=== PATIENT | male | born 1955 | race Caucasian/White ===

== ENCOUNTER 2022-06-22 16:46 | Inpatient (IN) | payer BC ==
[~2022-06-22] VITALS: Ht 182.9 cm; Wt 91.9 kg
[~2022-06-22 16:46] MED LIST: CARV3.1289 PO; FURO-150 PO; LISI5TAB22 PO; NO HOME MEDS; SPIR25TA5 PO
[2022-06-22 17:10] LABS: BASOPHILS # (AUTO) 0.1 X10'3 (0-0.2); BASOPHILS % (AUTO) 0.6 % (0-1); EOSINOPHILS # (AUTO) 0.2 X10'3 (0-0.9); EOSINOPHILS % (AUTO) 1.5 % (0-6); HEMATOCRIT 39.6 % (42.0-52.0); HEMOGLOBIN 12.9 g/dl (14.0-17.9); LYMPHOCYTES # (AUTO) 2.8 X10'3 (1.1-4.8); LYMPHOCYTES % (AUTO) 20.9 % (21-51); MEAN CORPUSCULAR HEMOGLOBIN 31.1 PG (27.0-31.0); MEAN CORPUSCULAR HGB CONC 32.6 g/dL (33.0-36.5); MEAN CORPUSCULAR VOLUME 95.2 FL (78-98); MEAN PLATELET VOLUME 9.6 FL (7.4-10.4); MONOCYTES # (AUTO) 1.7 X10'3 (0-0.9); MONOCYTES % (AUTO) 12.7 % (2-12); NEUTROPHILS # (AUTO) 8.8 X10'3 (1.8-7.7); NEUTROPHILS % (AUTO) 64.3 % (42-75); PLATELET COUNT 162 X10'3 (140-440); RED BLOOD COUNT 4.16 X10'6 (4.70-6.10); RED CELL DISTRIBUTION WIDTH 14.5 % (11.5-14.5); WHITE BLOOD COUNT 13.6 X10'3 (4.5-11.0)
[2022-06-22 17:35] LABS: ALANINE AMINOTRANSFERASE 503 U/L (12-78); ALBUMIN 3.3 G/DL (3.4-5.0); ALBUMIN/GLOBULIN RATIO 0.9 (1.1-1.5); ALKALINE PHOSPHATASE 153 IU/L (46-116); ANION GAP 13 (8-16); ASPARTATE AMINO TRANSFERASE 474 U/L (10-37); BLOOD UREA NITROGEN 21 MG/DL (7-18); BUN/CREATININE RATIO 17.5 (5.4-32.0); CALCIUM 8.8 MG/DL (8.5-10.1); CHLORIDE 99 MMOL/L (99-107); GLUCOSE 125 MG/DL (70-104); POTASSIUM 4.4 MMOL/L (3.5-5.1); SODIUM 132 MMOL/L (135-145); TOTAL CARBON DIOXIDE 19.9 MMOL/L (24-32); TOTAL PROTEIN 6.9 G/DL (6.4-8.2); eGFR 61 ML/MIN
[2022-06-22 17:42] LABS: MAGNESIUM 2.3 MG/DL (1.5-2.4)
[2022-06-22] MEDS ORDERED: CefTRIAXone 2gm/D5W 50ml BAG 50 ML IV ONE (20:00)
[2022-06-22] MEDS ORDERED: normal saline 1000ml 1,000 ML IV ONE (20:25)
[2022-06-22] MEDS ORDERED: iohexol 300mg/ml 100ml inj. ONE (20:40)
[2022-06-22 21:11] LABS: D-DIMER 8.72 MG/L FEU (0-0.50)
--- NOTE | 2022-06-22 21:19 | NUR ---
he is SOB but holding his oxygen down off his face "it stinks like burnt wood."
[2022-06-22] MEDS ORDERED: iohexol 350MG/ML 100ml bottle IV ONE (21:31)
[2022-06-22 21:54] LABS: APTT 29 SECONDS (22-32)
[2022-06-22] MEDS ORDERED: potassium Cl 20 mEq SR tablet PO PRN (22:15)
[2022-06-22] MEDS ORDERED: mag hydrox/Alum hydrox/simeth 30ml oral suspension PO PRN (22:15)
[2022-06-22] MEDS ORDERED: ondansetron/PF 4mg/2ml inj IV PRN (22:15)
[2022-06-22] MEDS ORDERED: ondansetron 4mg rapidly disintigrating tab PO PRN (22:15)
[2022-06-22] MEDS ORDERED: acetaminophen 325mg tablet PO PRN (22:15)
[2022-06-22] MEDS ORDERED: morphine 2 MG/ML inj. syringe IV PRN ×2 (22:15)
[2022-06-22] MEDS ORDERED: magnesium Cl slow-release 64mg tablet PO PRN (22:15)
[2022-06-22] MEDS ORDERED: furosemide 40mg/4ml inj IV ONE (22:15)
[2022-06-22] MEDS ORDERED: magnesium 4gm in 100ml NS 100 ML IV PRN (22:15)
[2022-06-22] MEDS ORDERED: PERFLUTREN PROTEIN-A MICROSPHR (Optison) 0.22 MG/ML 3ML VIAL IV PRN (22:15)
[2022-06-22] MEDS ORDERED: magnesium hydroxide 30ml (MOM) UD suspension PO PRN (22:15)
[2022-06-22] MEDS: normal saline 1000ml 1,000 ML IV SCH (22:15)
[2022-06-22] MEDS ORDERED: acetaminophen 650mg rectal suppository RC PRN (22:15)
[2022-06-22] MEDS ORDERED: potassium Cl 40MEQ/1/2NS 520ml 520 ML IV PRN (22:15)
[2022-06-22] MEDS ORDERED: heparin 10,000 units/1 ML INJ IV PRN (22:15)
[2022-06-22] MEDS ORDERED: heparin 10,000 units/1 ML INJ IV ONE (22:15)
[2022-06-22] MEDS: heparin 25,000 UNIT/250ml bag 250 ML IV PRN (23:40)
[2022-06-23 03:10] VITALS: BP 129/86
[2022-06-23 06:00] VITALS: BP 133/90
--- NOTE | 2022-06-23 06:15 | NUR ---
Patient in room PCU 3016. I have received report from Raymundo ANNE and had the opportunity to ask questions and assume patient care. Bedside report completed. Pt sleeping, Call light in reach. Addendum: 06/23/22 at 0650 by Adina Mcmahon RN Amended: Links added.
[2022-06-23 06:55] LABS: BASOPHILS % (AUTO) 0.3 % (0-1); EOSINOPHILS % (AUTO) 0.1 % (0-6); HEMATOCRIT 39.3 % (42.0-52.0); HEMOGLOBIN 12.6 g/dl (14.0-17.9); LYMPHOCYTES # (AUTO) 1.8 X10'3 (1.1-4.8); LYMPHOCYTES % (AUTO) 13.8 % (21-51); MEAN CORPUSCULAR HEMOGLOBIN 30.5 PG (27.0-31.0); MEAN CORPUSCULAR VOLUME 95.2 FL (78-98); MEAN PLATELET VOLUME 10.7 FL (7.4-10.4); MONOCYTES # (AUTO) 1.8 X10'3 (0-0.9); MONOCYTES % (AUTO) 13.8 % (2-12); NEUTROPHILS # (AUTO) 9.6 X10'3 (1.8-7.7); PLATELET COUNT 145 X10'3 (140-440); RED BLOOD COUNT 4.13 X10'6 (4.70-6.10); RED CELL DISTRIBUTION WIDTH 14.1 % (11.5-14.5); WHITE BLOOD COUNT 13.3 X10'3 (4.5-11.0)
[2022-06-23 06:59] LABS: ALBUMIN 3.3 G/DL (3.4-5.0); ALBUMIN/GLOBULIN RATIO 0.9 (1.1-1.5); ALKALINE PHOSPHATASE 144 IU/L (46-116); ANION GAP 12 (8-16); BILIRUBIN,TOTAL 3.3 MG/DL (0.1-1.0); BLOOD UREA NITROGEN 25 MG/DL (7-18); BUN/CREATININE RATIO 17.5 (5.4-32.0); CALCIUM 8.6 MG/DL (8.5-10.1); CHLORIDE 100 MMOL/L (99-107); CREATININE 1.43 MG/DL (0.60-1.10); GLUCOSE 93 MG/DL (70-104); MAGNESIUM 2.1 MG/DL (1.5-2.4); POTASSIUM 4.8 MMOL/L (3.5-5.1); SODIUM 134 MMOL/L (135-145); TOTAL CARBON DIOXIDE 22.1 MMOL/L (24-32); TOTAL PROTEIN 6.8 G/DL (6.4-8.2); eGFR 49 ML/MIN
[2022-06-23 07:42] LABS: ALANINE AMINOTRANSFERASE 2123 U/L (12-78); ASPARTATE AMINO TRANSFERASE 3140 U/L (10-37)
[2022-06-23] MEDS: K and/or MAG REPLACEMENT MC SCH ×2 (08:00→20:00)
[2022-06-23] MEDS: pantoprazole 40mg Tablet.DR PO SCH (08:01)
[2022-06-23] MEDS: furosemide 40mg/4ml inj IV SCH ×2 (08:01→20:49)
[2022-06-23] MEDS: docusate sod 100mg capsule PO SCH ×2 (08:01→20:00)
[2022-06-23] MEDS: normal saline 1000ml 1,000 ML IV SCH (08:15)
[2022-06-23] MEDS ORDERED: iohexol 350MG/ML 100ml bottle IV ONE (09:26)
[2022-06-23] MEDS ORDERED: FLU VACC QS2022-23(6MOS UP)/PF 60 MCG/0.5 ML SYRINGE IMVAC ONE (10:00)
[2022-06-23] MEDS ORDERED: pneumococcal 23-VAL P-sac vacc 25 mcg/0.5ml vial IMVAC ONE (10:00)
[2022-06-23] MEDS ORDERED: furosemide 20 MG/2 ML vial IV ONE (10:15)
[2022-06-23 11:00] VITALS: BP 123/87
[2022-06-23 15:00] VITALS: BP 125/85
[2022-06-23] MEDS: heparin 25,000 UNIT/250ml bag 250 ML IV PRN (16:02)
[2022-06-23] MEDS ORDERED: ASPI-1071 PO (16:21)
[2022-06-23] MEDS ORDERED: MULT-227 PO (16:21)
[2022-06-23 18:00] VITALS: BP 136/95
--- NOTE | 2022-06-23 18:37 | NUR ---
Problems reprioritized. Patient report given, questions answered & plan of care reviewed with Torri ANNE. Bedside report completed. Pt finished dinner, Call light in reach. Pt continues with SOB. O2 sat WNL. Addendum: 06/23/22 at 1838 by Adina Mcmahon RN Amended: Links added.
[2022-06-23] MEDS: temazepam 15mg capsule PO PRN (20:46)
[2022-06-23] MEDS: aspirin 81mg, enteric-coated 1 TAB TABLET.DR PO SCH (20:48)
[2022-06-23 22:00] VITALS: BP 128/85
[2022-06-24 01:59] LABS: BASOPHILS % (AUTO) 0.3 % (0-1); EOSINOPHILS % (AUTO) 0.2 % (0-6); HEMATOCRIT 39.3 % (42.0-52.0); HEMOGLOBIN 12.8 g/dl (14.0-17.9); LYMPHOCYTES # (AUTO) 2.5 X10'3 (1.1-4.8); LYMPHOCYTES % (AUTO) 15.8 % (21-51); MEAN CORPUSCULAR HEMOGLOBIN 30.9 PG (27.0-31.0); MEAN CORPUSCULAR HGB CONC 32.6 g/dL (33.0-36.5); MEAN CORPUSCULAR VOLUME 94.7 FL (78-98); MEAN PLATELET VOLUME 10.1 FL (7.4-10.4); MONOCYTES # (AUTO) 1.9 X10'3 (0-0.9); MONOCYTES % (AUTO) 11.9 % (2-12); NEUTROPHILS # (AUTO) 11.4 X10'3 (1.8-7.7); NEUTROPHILS % (AUTO) 71.8 % (42-75); PLATELET COUNT 111 X10'3 (140-440); RED BLOOD COUNT 4.15 X10'6 (4.70-6.10); RED CELL DISTRIBUTION WIDTH 14.3 % (11.5-14.5); WHITE BLOOD COUNT 15.8 X10'3 (4.5-11.0)
[2022-06-24 02:00] VITALS: BP 125/82
[2022-06-24 02:17] LABS: ALBUMIN 3.4 G/DL (3.4-5.0); ALBUMIN/GLOBULIN RATIO 1.1 (1.1-1.5); ALKALINE PHOSPHATASE 147 IU/L (46-116); ANION GAP 13 (8-16); BILIRUBIN,TOTAL 4.1 MG/DL (0.1-1.0); BLOOD UREA NITROGEN 36 MG/DL (7-18); BUN/CREATININE RATIO 20.7 (5.4-32.0); CALCIUM 8.4 MG/DL (8.5-10.1); CHLORIDE 96 MMOL/L (99-107); CREATININE 1.74 MG/DL (0.60-1.10); GLUCOSE 83 MG/DL (70-104); PHOSPHORUS 5.2 MG/DL (2.3-4.5); POTASSIUM 4.5 MMOL/L (3.5-5.1); SODIUM 130 MMOL/L (135-145); TOTAL CARBON DIOXIDE 21.5 MMOL/L (24-32); TOTAL PROTEIN 6.6 G/DL (6.4-8.2); eGFR 39 ML/MIN
[2022-06-24 03:09] LABS: ALANINE AMINOTRANSFERASE 3498 U/L (12-78); ASPARTATE AMINO TRANSFERASE 1619 U/L (10-37)
[2022-06-24 06:00] VITALS: BP 95/80
--- NOTE | 2022-06-24 06:03 | NUR ---
Problems reprioritized. Patient report given, questions answered & plan of care reviewed with DAYANA Holden.
--- NOTE | 2022-06-24 06:17 | NUR ---
Patient in room PCU 3016. I have received report from Torri ANNE and had the opportunity to ask questions and assume patient care.Bedside report completed. Pt sleeping. O2 Sat 100% on RA. RR 24. Call light in reach. Addendum: 06/24/22 at 0618 by Adina Mcmahon RN Amended: Links added.
[2022-06-24] MEDS: K and/or MAG REPLACEMENT MC SCH ×2 (08:00→20:00)
[2022-06-24] MEDS: multivitamins, therapeutics tablet PO SCH (08:07)
[2022-06-24] MEDS: pantoprazole 40mg Tablet.DR PO SCH (08:08)
[2022-06-24] MEDS: docusate sod 100mg capsule PO SCH ×2 (08:08→21:12)
[2022-06-24] MEDS: aspirin 81mg, enteric-coated 1 TAB TABLET.DR PO SCH (08:09)
[2022-06-24] MEDS: furosemide 40mg/4ml inj IV SCH ×2 (08:09→21:12)
[2022-06-24 09:21] LABS: CLARITY,URINE SLIGHTLY CLOUDY (Clear); COLOR,URINE YELLOW (Yellow); GLUCOSE, URINE NEGATIVE (Neg); KETONES,URINE NEGATIVE (Neg); LEUKOCYTE ESTERASE ,URINE NEGATIVE (Neg); NITRITES, URINE NEGATIVE (Neg); OCCULT BLOOD,URINE SMALL (Neg); PH,URINE 5.5 (4.8-8.0); PROTEIN,URINE 30 mg/dl (Neg)
[2022-06-24] MEDS: heparin 25,000 UNIT/250ml bag 250 ML IV PRN ×2 (09:26→23:35)
[2022-06-24 09:27] LABS: UA COLLECTION TYPE VOIDED
[2022-06-24 09:32] LABS: BACTERIA,URINE FEW /HPF (Neg); MUCUS STRANDS NONE SEEN /LPF (Neg); SQUAMOUS EPITHELIAL CELL,UR FEW /LPF (FEW); WBC,URINE 0-4 /HPF (0-4)
[2022-06-24 11:28] VITALS: BP 119/90
[2022-06-24 15:00] VITALS: BP 107/85
[2022-06-24 15:14] LABS: HBSAG SCREEN Negative (Negative); HEP A AB, IGM Negative (Negative)
[2022-06-24 15:25] LABS: ABG BASE EXCESS -1.6 mmol/L (-2.0-2.0); ABG HCO3 18.5 mmol/L (22.0-26.0); ABG OXYGEN SATURATION 97.8 % (94-97); ABG PCO2 (T) 20.9 mmHg (35.0-48.0); ABG PO2 (T) 98.8 mmHg (75.0-100.0); ALLEN'S TEST POSITIVE; FCOHb 0.1 % (0.0-3.9); FMetHb 0.2 % (0.0-1.5); FO2Hb 97.5 % (94-97); TOTAL HEMOGLOBIN 13.2 G/dl (14.0-17.9)
--- NOTE | 2022-06-24 15:45 | NUR ---
CRITICAL ABG RESULTS REPORTED TO . NO RESPIRATORY ORDERS GIVEN AT THIS TIME, DAYANA GARCIA AWARE OF ABG RESULTS.
--- NOTE | 2022-06-24 16:22 | NUR ---
DR Dunn informed of Pt ABG results. No new orders. She will eval all the information available. Pt remains in PCU. PT RR 25, O2 sat 97% on 2L. HR 107, BP 107/85. Will continue to monitor and await orders.
[2022-06-24 18:00] VITALS: BP 118/72
--- NOTE | 2022-06-24 18:23 | NUR ---
Problems reprioritized. Patient report given, questions answered & plan of care reviewed with Eda ANNE. Bedside report completed. Pt sitting up in bed. RR 24. O2 sat 26% on 2L. Call light in reach. Addendum: 06/24/22 at 1825 by Adina Mcmahon RN Amended: Links added.
--- NOTE | 2022-06-24 18:38 | NUR ---
Patient in room PCU 3016. I have received report from Adina ANNE and had the opportunity to ask questions and assume patient care.
[2022-06-24] MEDS ORDERED: ipratropium/albuterol 3ml nebule NEB PRN (20:30)
[2022-06-24] MEDS: temazepam 15mg capsule PO PRN (21:12)
[2022-06-24 22:00] VITALS: BP 122/81
[2022-06-24] MEDS: ipratropium/albuterol 3ml nebule NEB SCH (23:00)
[2022-06-25] VITALS (30 sets, daily range): BP systolic 73–124; BP diastolic 42–98
[2022-06-25] MEDS: ipratropium/albuterol 3ml nebule NEB SCH ×2 (03:00→07:00)
[2022-06-25 03:53] LABS: APTT 76 SECONDS (22-32)
--- NOTE | 2022-06-25 06:02 | NUR ---
11 BEAT RUN OF MD SYDNEY NOTIFIED, NO NEW ORDERS ELAINE ANNE
--- NOTE | 2022-06-25 06:35 | NUR ---
Patient in room PCU 3016. I have received report from Eda ANNE and had the opportunity to ask questions and assume patient care.Bedside report completed. Pt sleeping. Laying flat. No respritory distress. RR 20. RA O2 sat 95%. Addendum: 06/25/22 at 0650 by Adina Mcmahon RN Amended: Links added.
[2022-06-25 06:46] LABS: BASOPHILS # (AUTO) 0.1 X10'3 (0-0.2); BASOPHILS % (AUTO) 0.6 % (0-1); EOSINOPHILS # (AUTO) 0.3 X10'3 (0-0.9); EOSINOPHILS % (AUTO) 2.1 % (0-6); HEMOGLOBIN 11.7 g/dl (14.0-17.9); LYMPHOCYTES # (AUTO) 1.9 X10'3 (1.1-4.8); LYMPHOCYTES % (AUTO) 15.7 % (21-51); MEAN CORPUSCULAR HEMOGLOBIN 30.6 PG (27.0-31.0); MEAN CORPUSCULAR HGB CONC 32.5 g/dL (33.0-36.5); MEAN PLATELET VOLUME 10.7 FL (7.4-10.4); MONOCYTES # (AUTO) 1.3 X10'3 (0-0.9); MONOCYTES % (AUTO) 11.2 % (2-12); NEUTROPHILS # (AUTO) 8.5 X10'3 (1.8-7.7); NEUTROPHILS % (AUTO) 70.4 % (42-75); PLATELET COUNT 107 X10'3 (140-440); RED BLOOD COUNT 3.83 X10'6 (4.70-6.10); RED CELL DISTRIBUTION WIDTH 14.2 % (11.5-14.5); WHITE BLOOD COUNT 12.1 X10'3 (4.5-11.0)
--- NOTE | 2022-06-25 07:10 | NUR ---
Problems reprioritized. Patient report given, questions answered & plan of care reviewed with RADHA ANNE.
[2022-06-25 07:15] LABS: ALKALINE PHOSPHATASE 144 IU/L (46-116); ANION GAP 10 (8-16); BILIRUBIN,TOTAL 4.3 MG/DL (0.1-1.0); BLOOD UREA NITROGEN 33 MG/DL (7-18); BUN/CREATININE RATIO 25.4 (5.4-32.0); CALCIUM 7.6 MG/DL (8.5-10.1); CHLORIDE 97 MMOL/L (99-107); GLUCOSE 105 MG/DL (70-104); MAGNESIUM 2.2 MG/DL (1.5-2.4); PHOSPHORUS 2.7 MG/DL (2.3-4.5); POTASSIUM 3.2 MMOL/L (3.5-5.1); SODIUM 131 MMOL/L (135-145); TOTAL CARBON DIOXIDE 23.8 MMOL/L (24-32); TOTAL PROTEIN 5.9 G/DL (6.4-8.2); eGFR 55 ML/MIN
[2022-06-25 07:19] LABS: ASPARTATE AMINO TRANSFERASE 1953 U/L (10-37)
[2022-06-25 07:20] LABS: ALANINE AMINOTRANSFERASE 2589 U/L (12-78)
[2022-06-25] MEDS: K and/or MAG REPLACEMENT MC SCH ×2 (08:00→20:26)
[2022-06-25] MEDS: docusate sod 100mg capsule PO SCH (08:35)
[2022-06-25] MEDS: aspirin 81mg, enteric-coated 1 TAB TABLET.DR PO SCH (08:36)
[2022-06-25] MEDS: pantoprazole 40mg Tablet.DR PO SCH (08:37)
[2022-06-25] MEDS: multivitamins, therapeutics tablet PO SCH (08:37)
[2022-06-25] MEDS: furosemide 40mg/4ml inj IV SCH ×2 (08:37→20:00)
[2022-06-25] MEDS: carVEDilol 3.125mg tablet PO SCH ×2 (10:16→20:00)
[2022-06-25] MEDS: levoFLOXACIN-Levaquin 500mg/D5 100 ML IV SCH (10:16)
[2022-06-25] MEDS: lisinopril 2.5mg tablet PO SCH (10:16)
[2022-06-25] MEDS ORDERED: furosemide 40mg/4ml inj IV ONE (12:10)
--- NOTE | 2022-06-25 12:15 | NUR ---
DR Ponce and Dr Fish at bedside. New orders written. Pt started on Dobutamine Gtt. Labs ordered and drawn. Lasix iv and Kdur po given.
[2022-06-25] MEDS: DOBUTamine-DoBUTrex 500mg/D5W 250 ML IV SCH (12:27)
[2022-06-25] MEDS: potassium Cl 20 mEq SR tablet PO PRN ×2 (12:27→18:51)
[2022-06-25] MEDS ORDERED: potassium Cl 20 mEq SR tablet PO ONE (12:35)
--- NOTE | 2022-06-25 13:53 | NUR ---
PAGER ID: [phone] MESSAGE: [id number] [facility] 3.0, Pro Ca+ 0.64 Adina CENTENO
--- NOTE | 2022-06-25 16:22 | NUR ---
PT updated to POC.
[2022-06-25] MEDS ORDERED: magnesium Cl slow-release 64mg tablet PO PRN (23:25)
[2022-06-25] MEDS ORDERED: magnesium 4gm in 100ml NS 100 ML IV PRN (23:25)
[2022-06-25] MEDS ORDERED: potassium Cl 20 mEq SR tablet PO PRN (23:25)
[2022-06-25] MEDS ORDERED: potassium Cl 40MEQ/1/2NS 520ml 520 ML IV PRN (23:25)
[2022-06-25] MEDS: temazepam 15mg capsule PO PRN (23:44)
[2022-06-26] VITALS (14 sets, daily range): BP systolic 84–156; BP diastolic 55–85
[2022-06-26] MEDS: DOBUTamine-DoBUTrex 500mg/D5W 250 ML IV SCH ×2 (03:18→15:56)
--- NOTE | 2022-06-26 06:27 | NUR ---
Patient in room U 3012V. I have received report from Raymundo ANNE and had the opportunity to ask questions and assume patient care. Pt is in bed lating on L side of body. Pt is resting comfortably. Pt on RA. No s/s of distress. No s/s of pain at this time. BLL, call light within reach, frequently used items in reach, frequnt rounding, morgue keeper socks on. Will continue to monitor.
--- NOTE | 2022-06-26 06:29 | NUR ---
Recieved report from Abdirizak ANNE, not Raymundo ANNE
[2022-06-26 06:33] LABS: EOSINOPHILS # (AUTO) 0.9 X10'3 (0-0.9); LYMPHOCYTES # (AUTO) 2.3 X10'3 (1.1-4.8)
[2022-06-26 06:37] LABS: BASOPHILS % (AUTO) 0.5 % (0-1); EOSINOPHILS % (AUTO) 9.6 % (0-6); HEMATOCRIT 36.4 % (42.0-52.0); LYMPHOCYTES % (AUTO) 24.5 % (21-51); MEAN CORPUSCULAR HEMOGLOBIN 30.8 PG (27.0-31.0); MEAN CORPUSCULAR VOLUME 93.3 FL (78-98); MEAN PLATELET VOLUME 10.5 FL (7.4-10.4); MONOCYTES # (AUTO) 1.2 X10'3 (0-0.9); MONOCYTES % (AUTO) 13.1 % (2-12); NEUTROPHILS # (AUTO) 4.9 X10'3 (1.8-7.7); NEUTROPHILS % (AUTO) 52.3 % (42-75); PLATELET COUNT 113 X10'3 (140-440); RED CELL DISTRIBUTION WIDTH 14.4 % (11.5-14.5); WHITE BLOOD COUNT 9.4 X10'3 (4.5-11.0)
[2022-06-26 06:51] LABS: ALBUMIN 2.7 G/DL (3.4-5.0); ALBUMIN/GLOBULIN RATIO 0.8 (1.1-1.5); ALKALINE PHOSPHATASE 147 IU/L (46-116); ANION GAP 7 (8-16); ASPARTATE AMINO TRANSFERASE 857 U/L (10-37); BILIRUBIN,TOTAL 3.4 MG/DL (0.1-1.0); BLOOD UREA NITROGEN 25 MG/DL (7-18); BUN/CREATININE RATIO 22.9 (5.4-32.0); CALCIUM 7.8 MG/DL (8.5-10.1); CHLORIDE 99 MMOL/L (99-107); CREATININE 1.09 MG/DL (0.60-1.10); GLUCOSE 97 MG/DL (70-104); MAGNESIUM 2.4 MG/DL (1.5-2.4); PHOSPHORUS 2.1 MG/DL (2.3-4.5); POTASSIUM 4.1 MMOL/L (3.5-5.1); SODIUM 135 MMOL/L (135-145); TOTAL CARBON DIOXIDE 28.6 MMOL/L (24-32); TOTAL PROTEIN 5.9 G/DL (6.4-8.2); eGFR 68 ML/MIN
[2022-06-26 06:53] LABS: ALANINE AMINOTRANSFERASE 1915 U/L (12-78)
[2022-06-26] MEDS: K and/or MAG REPLACEMENT MC SCH ×4 (08:00→20:00)
[2022-06-26] MEDS: multivitamins, therapeutics tablet PO SCH (09:16)
[2022-06-26] MEDS: pantoprazole 40mg Tablet.DR PO SCH (09:16)
[2022-06-26] MEDS: levoFLOXACIN-Levaquin 500mg/D5 100 ML IV SCH (09:16)
[2022-06-26] MEDS: carVEDilol 3.125mg tablet PO SCH ×2 (09:16→20:34)
[2022-06-26] MEDS: lisinopril 2.5mg tablet PO SCH (09:16)
[2022-06-26] MEDS: aspirin 81mg, enteric-coated 1 TAB TABLET.DR PO SCH (09:17)
[2022-06-26] MEDS: furosemide 40mg/4ml inj IV SCH ×2 (09:17→20:35)
--- NOTE | 2022-06-26 18:17 | NUR ---
Problems reprioritized. Patient report given, questions answered & plan of care reviewed with Raymundo ANNE.
[2022-06-27] VITALS (20 sets, daily range): BP systolic 87–105; BP diastolic 55–71
[2022-06-27] MEDS: DOBUTamine-DoBUTrex 500mg/D5W 250 ML IV SCH ×2 (04:54→23:09)
[2022-06-27 07:01] LABS: EOSINOPHILS # (AUTO) 0.9 X10'3 (0-0.9); HEMOGLOBIN 12.9 g/dl (14.0-17.9); LYMPHOCYTES # (AUTO) 1.8 X10'3 (1.1-4.8); MONOCYTES # (AUTO) 1.4 X10'3 (0-0.9)
[2022-06-27 07:02] LABS: BASOPHILS # (AUTO) 0.1 X10'3 (0-0.2); BASOPHILS % (AUTO) 0.7 % (0-1); EOSINOPHILS % (AUTO) 10.4 % (0-6); HEMATOCRIT 39.3 % (42.0-52.0); LYMPHOCYTES % (AUTO) 20.3 % (21-51); MEAN CORPUSCULAR HEMOGLOBIN 30.9 PG (27.0-31.0); MEAN CORPUSCULAR HGB CONC 32.9 g/dL (33.0-36.5); MEAN CORPUSCULAR VOLUME 93.9 FL (78-98); MEAN PLATELET VOLUME 11.1 FL (7.4-10.4); MONOCYTES % (AUTO) 15.7 % (2-12); NEUTROPHILS # (AUTO) 4.7 X10'3 (1.8-7.7); NEUTROPHILS % (AUTO) 52.9 % (42-75); PLATELET COUNT 133 X10'3 (140-440); RED BLOOD COUNT 4.19 X10'6 (4.70-6.10); RED CELL DISTRIBUTION WIDTH 14.5 % (11.5-14.5); WHITE BLOOD COUNT 8.8 X10'3 (4.5-11.0)
[2022-06-27 07:18] LABS: ALBUMIN 2.7 G/DL (3.4-5.0); ALBUMIN/GLOBULIN RATIO 0.8 (1.1-1.5); ALKALINE PHOSPHATASE 167 IU/L (46-116); ANION GAP 9 (8-16); ASPARTATE AMINO TRANSFERASE 538 U/L (10-37); BILIRUBIN,TOTAL 2.8 MG/DL (0.1-1.0); BLOOD UREA NITROGEN 22 MG/DL (7-18); BUN/CREATININE RATIO 21.6 (5.4-32.0); CHLORIDE 98 MMOL/L (99-107); CREATININE 1.02 MG/DL (0.60-1.10); GLUCOSE 111 MG/DL (70-104); PHOSPHORUS 3.2 MG/DL (2.3-4.5); POTASSIUM 3.9 MMOL/L (3.5-5.1); SODIUM 130 MMOL/L (135-145); TOTAL CARBON DIOXIDE 23.5 MMOL/L (24-32); TOTAL PROTEIN 6.1 G/DL (6.4-8.2); eGFR 73 ML/MIN
[2022-06-27] MEDS: pantoprazole 40mg Tablet.DR PO SCH (07:30)
[2022-06-27 07:39] LABS: ALANINE AMINOTRANSFERASE 1512 U/L (12-78)
[2022-06-27] MEDS: K and/or MAG REPLACEMENT MC SCH ×2 (08:00→20:00)
[2022-06-27] MEDS: aspirin 81mg, enteric-coated 1 TAB TABLET.DR PO SCH (08:00)
[2022-06-27] MEDS: multivitamins, therapeutics tablet PO SCH (08:00)
[2022-06-27 08:10] LABS: LARGE PLATELETS FEW; PLATELET ESTIMATE DECREASED
[2022-06-27] MEDS ORDERED: LIDOcaine 1% 30ml preserv. free vial ONE ×2 (08:13→08:24)
[2022-06-27] MEDS ORDERED: iohexol 350 MG/ML 50ML vial IV ONE ×2 (08:13→08:24)
[2022-06-27] MEDS ORDERED: midazolam 1 mg/ML 2ml injection ONE ×3 (08:13→08:39)
[2022-06-27] MEDS ORDERED: heparin 1,000 UNITS/NS 500ml 0 ML ONE (08:13)
[2022-06-27] MEDS ORDERED: fentaNYL/PF 50MCG/1 ML 2ML syringe ONE ×3 (08:13→08:39)
[2022-06-27] MEDS ORDERED: heparin 1,000unit/ml 10ml vial 10 ML ONE (08:24)
[2022-06-27] MEDS ORDERED: verapamil 2.5 mg/ml inj IV ONE ×2 (08:24→08:39)
[2022-06-27] MEDS ORDERED: iohexol 350MG/ML 100ml bottle IV ONE (08:25)
[2022-06-27] MEDS ORDERED: nitroGLYCERIN-Tridil 50MG/D5W 0 ML IV ONE (08:25)
[2022-06-27] MEDS: carVEDilol 3.125mg tablet PO SCH ×2 (08:33→19:58)
[2022-06-27] MEDS: furosemide 40mg/4ml inj IV SCH (08:34)
[2022-06-27] MEDS: levoFLOXACIN-Levaquin 500mg/D5 100 ML IV SCH (08:35)
[2022-06-27] MEDS ORDERED: nitroGLYCERIN-Tridil 50MG/D5W 250 ML IV ONE (08:39)
[2022-06-27 10:43] LABS: ISTAT HGB ART 12.9 g/dl (14.0-17.9); ISTAT Hct ART 38 %PCV (42-52); ISTAT O2 SATURATION ARTERIAL 98 % (95-98); ISTAT SOURCE ART
[2022-06-27] MEDS ORDERED: furosemide 20 MG/2 ML vial IV SCH (10:45)
[2022-06-27] MEDS ORDERED: furosemide 40mg/4ml inj IV SCH (10:53)
[2022-06-27] MEDS: spironolactone 25 MG tablet PO SCH (10:54)
--- NOTE | 2022-06-27 11:18 | NUR ---
Advised Dr of Kenyatta from 135 to 130. No new orders at this time. Will continue to monitor.
[2022-06-27 11:48] LABS: ISTAT Hct MIX 38 %PCV (42-52); ISTAT O2 SATURATION MIX VENOUS 58 % (60-80); ISTAT SOURCE VEN
--- NOTE | 2022-06-27 14:09 | NUR ---
Initial: Pt admit DX acute respiratory failure-now resolved, possible PNA, CHF, hyponatremia, hypokalemia, and thrombocytopenia per EMR. PO improving through LOS ~66% avg recent heart healthy/2L fluid-restricted diet overall partially meeting estimated needs. KATARZYNA recommends Ensure Plus High Protein BIDBD to assist meeting needs; MD notified. Pt NPO s/p cardiac cath this AM per EMR. LBM 2/4. Will continue to follow. Rec: 1. continue heart healthy/2L fluid-restricted diet per MD; if serum Na continues to be low and PO intake improves consider removal of heart healthy restriction 2. Ensure Plus High Protein BIDBD; pending physician verification in EMR 3. routine bowel care 4. weekly wts Addendum: 06/27/22 at [address] Amended: Links added.
[2022-06-27] MEDS: LACTOSE-REDUCED FOOD 237ML LIQUID PO SCH (17:30)
[2022-06-28] VITALS (9 sets, daily range): BP systolic 82–138; BP diastolic 52–99
[2022-06-28] MEDS: DOBUTamine-DoBUTrex 500mg/D5W 250 ML IV SCH (05:11)
[2022-06-28] MEDS: LACTOSE-REDUCED FOOD 237ML LIQUID PO SCH (07:30)
[2022-06-28 07:47] LABS: BLOOD UREA NITROGEN 22 MG/DL (7-18); BUN/CREATININE RATIO 22.2 (5.4-32.0); CHLORIDE 103 MMOL/L (99-107); CREATININE 0.99 MG/DL (0.60-1.10); GLUCOSE 104 MG/DL (70-104); POTASSIUM 4.4 MMOL/L (3.5-5.1); SODIUM 135 MMOL/L (135-145); eGFR 76 ML/MIN
[2022-06-28 07:54] LABS: ALBUMIN 2.7 G/DL (3.4-5.0); ANION GAP 6 (8-16); CALCIUM 8.4 MG/DL (8.5-10.1); MAGNESIUM 2.3 MG/DL (1.5-2.4); TOTAL CARBON DIOXIDE 26.5 MMOL/L (24-32)
[2022-06-28] MEDS: K and/or MAG REPLACEMENT MC SCH (08:00)
[2022-06-28] MEDS ORDERED: sacubitril/valsartan 24mg-26mg tablet PO SCH (08:00)
--- NOTE | 2022-06-28 08:11 | NUR ---
Emailed pharmacy for AM dose for Entresto.
[2022-06-28] MEDS: carVEDilol 3.125mg tablet PO SCH (08:18)
[2022-06-28] MEDS: pantoprazole 40mg Tablet.DR PO SCH (08:18)
[2022-06-28] MEDS: spironolactone 25 MG tablet PO SCH (08:19)
[2022-06-28] MEDS: aspirin 81mg, enteric-coated 1 TAB TABLET.DR PO SCH (08:19)
[2022-06-28] MEDS: levoFLOXACIN-Levaquin 500mg/D5 100 ML IV SCH (08:20)
[2022-06-28] MEDS: multivitamins, therapeutics tablet PO SCH (08:20)
[2022-06-28] MEDS ORDERED: SPIR25TA PO (11:38)
[2022-06-28] MEDS ORDERED: COR3.125T PO (11:38)
--- NOTE | 2022-06-28 13:38 | NUR ---
Per [employer] JK, ok to turn off dobutamine gtt. Monitoring
--- NOTE | 2022-06-28 15:30 | NUR ---
AM dose of entresto 1/2 tab rec'd from pharmacy. Too close to PM dose that patient will take tonight. Med not administered.
[2022-06-28] MEDS ORDERED: SACU1TAB PO (15:38)
--- NOTE | 2022-06-28 15:45 | NUR ---
PIV was removed - pt tolerated well. Tele box returned to [facility]
--- NOTE | 2022-06-28 15:53 | NUR ---
Called [facility]onatan in [place], 2 prescriptions called in over the phone.
--- NOTE | 2022-06-28 18:49 | NUR ---
Student Medication Administration: For this medication-pass time frame, all medication were reviewed, dispensed, administered and documented per hospital policy by arthur Serrano.
--- NOTE | 2022-06-28 18:49 | NUR ---
Student documentation: I have reviewed and agree with all interventions, assessments performed and documented by arthur Serrano.
--- NOTE | 2022-06-28 19:10 | NUR ---
Pt stable for D/c per MD orders All d/c orders were rev'd with patient and patient verbalized understanding. All quetsions, comments, and concerns were rev'd and answered at this time. New RX was called into [facility]. Delayed d/t to Chey coming to pick him up. All personal belongings were sent with patient, Patient was wheeled down in W/C to private vehicle, was driving.
[2022-06-29 14:04] LABS: HEPATITIS C ANTIBODY Negative
== END 2022-06-28 17:20 | disposition home or self-care (01) | DRG 291 ==
LOC: ER 16:47 → ED HOLD 22:23 → PCU 3S 06-23 02:52
PROVIDERS: ADMIT Family Medicine; ATTEND Family Medicine
PROC: BW241ZZ Computerized Tomography (CT Scan) of Chest and Abdomen using Low Osmolar Contrast (ICD-10-PCS; principal; 2022-06-22)
PROC: B32T1ZZ Computerized Tomography (CT Scan) of Left Pulmonary Artery using Low Osmolar Contrast (ICD-10-PCS; 2022-06-23)
PROC: B3201ZZ Computerized Tomography (CT Scan) of Thoracic Aorta using Low Osmolar Contrast (ICD-10-PCS; 2022-06-23)
PROC: B32S1ZZ Computerized Tomography (CT Scan) of Right Pulmonary Artery using Low Osmolar Contrast (ICD-10-PCS; 2022-06-23)
DX: I11.0 Hypertensive heart disease with heart failure (principal); I50.23 Acute on chronic systolic (congestive) heart failure; J96.01 Acute respiratory failure with hypoxia; J18.9 Pneumonia, unspecified organism; E87.1 Hypo-osmolality and hyponatremia; E87.20 Acidosis, unspecified; D69.6 Thrombocytopenia, unspecified; I42.0 Dilated cardiomyopathy; E03.9 Hypothyroidism, unspecified; E78.5 Hyperlipidemia, unspecified; E87.6 Hypokalemia; I25.10 Atherosclerotic heart disease of native coronary artery without angina pectoris; Z20.822 Contact with and (suspected) exposure to COVID-19; R74.01 Elevation of levels of liver transaminase levels; I34.0 Nonrheumatic mitral (valve) insufficiency; Z63.4 Disappearance and death of family member; Z72.0 Tobacco use; Z79.899 Other long term (current) drug therapy; Z79.82 Long term (current) use of aspirin
CPT/HCPCS: 36415; 36600; 71045; 71046; 71275; 74177; 76700; 80048; 80053; 80074; 81001; 82803; 82948; 83605; 83735; 83880; 84100; 84145; 84443; 84484; 85008; 85014; 85018; 85025; 85379; 85610; 85730; 87040; 87081; 87502; 87503; 87635; 93005; 93306; 93970; 94640; 94760; 96361; 96365; 99285; A4615; A6258; G0378; J0696; J1250; J1644; J1940; J1956; J2250; J2270; J3010; J3490; J7030; J7040; Q9967

== ENCOUNTER 2023-11-19 07:04 | Emergency (ER) | payer MEDICARE, MEDICAID ==
[~2023-11-19] VITALS: Ht 185.4 cm; Wt 91.2 kg
[~2023-11-19 07:04] MED LIST changes: +ASPI-1071 PO; -CARV3.1289 PO; +COR3.125T PO; -FURO-150 PO; -LISI5TAB22 PO; +MULT-227 PO; -NO HOME MEDS; +SACU1TAB PO; +SPIR25TA PO; -SPIR25TA5 PO
[2023-11-19 07:05] VITALS: TEMP 97.7
[2023-11-19] MEDS: HYDROmorphone 1 mg/ml syringe IV ONE (08:18)
[2023-11-19] MEDS: LIDOcaine 1% 30ml preserv. free vial SQ STA (10:16)
[2023-11-19 11:42] VITALS: BP 129/84; PULSE 62; RESP 16; O2SAT 99
== END 2023-11-19 11:45 | disposition home or self-care (01) ==
LOC: ER 07:04
DX: S01.01XA Laceration without foreign body of scalp, initial encounter (principal); I11.0 Hypertensive heart disease with heart failure; I50.9 Heart failure, unspecified; Z98.890 Other specified postprocedural states; Z79.82 Long term (current) use of aspirin; Z79.899 Other long term (current) drug therapy; X58.XXXA Exposure to other specified factors, initial encounter; Y93.89 Activity, other specified; Y92.89 Other specified places as the place of occurrence of the external cause; Y99.8 Other external cause status
CPT/HCPCS: 12001; 70450; 96374; 99285; A6223; A6258; A6402; A6446; J1170; Z7610; A6449